=== PATIENT | male | born 1985 ===

== ENCOUNTER 2017-12-20 00:51 | Emergency (ER) | payer OTHER ==
[2017-12-20] MEDS ORDERED: Sodium Chloride 0.9% 1,000 ML IV STA (02:18)
--- NOTE | 2017-12-20 02:28 | ED PDOC ---
HPI: Abdomen Time Seen by Provider: 12/20/17 01:23 Chief Complaint (Nursing): Male Genitourinary Chief Complaint (Provider): Abdominal Pain History Per: Patient History/Exam Limitations: no limitations Current Symptoms Are (Timing): Still Present Additional Complaint(s): 32 y/o male presents to the ED complaining of sharp epigastric pain, onset yesterday. Today patient also reports of right flank, lower back pain, right lower quadrant pain, and right-sided groin pain as well as dysuria, fever, and chills. Denies bloody urination, other urinary symptoms, vomiting and diarrhea. PMD: None Provided Past Medical History Reviewed: Historical Data, Nursing Documentation, Vital Signs Vital Signs: Last Vital Signs Temp 102.9 F H 12/20/17 09:10 Pulse 102 H 12/20/17 09:10 Resp 20 12/20/17 09:10 BP 126/62 12/20/17 09:10 Pulse Ox 100 12/20/17 09:10 - Medical History PMH: No Chronic Diseases - Surgical History Surgical History: No Surg Hx - Family History Family History: States: Unknown Family Hx - Immunization History Hx Tetanus Toxoid Vaccination: No Hx Influenza Vaccination: No Hx Pneumococcal Vaccination: No - Home Medications Home Medications: Ambulatory Orders Medication Instructions Recorded No Known Home Med 04/27/17 - Allergies Allergies/Adverse Reactions: Allergies Allergy/AdvReac Type Severity Reaction Status Date / Time No Known Allergies Allergy Verified 12/20/17 01:13 Review of Systems ROS Statement: Except As Marked, All Systems Reviewed And Found Negative Constitutional: Positive for: Fever, Chills Gastrointestinal: Positive for: Abdominal Pain. Negative for: Vomiting, Diarrhea Genitourinary Male: Positive for: Hematuria Physical Exam - Reviewed Nursing Documentation Reviewed: Yes Vital Signs Reviewed: Yes - Physical Exam Appears: Positive for: No Acute Distress Head Exam: Positive for: ATRAUMATIC, NORMOCEPHALIC Skin: Positive for: Normal Color, Warm, Dry Eye Exam: Positive for: EOMI, Normal appearance, PERRL ENT: Positive for: Normal ENT Inspection Neck: Positive for: Normal, Painless ROM, Supple Cardiovascular/Chest: Positive for: Regular Rate, Rhythm Respiratory: Positive for: Normal Breath Sounds. Negative for: Respiratory Distress Gastrointestinal/Abdominal: Positive for: Normal Exam, Soft, Tenderness (to right lower quadrant) Back: Positive for: Normal Inspection Extremity: Positive for: Normal ROM. Negative for: Pedal Edema, Deformity Neurologic/Psych: Positive for: Alert, Oriented. Negative for: Motor/Sensory Deficits - Laboratory Results Result Diagrams: 12/20/17 02:55 12/20/17 02:55 - ECG O2 Sat by Pulse Oximetry: 97 (RA) Pulse Ox Interpretation: Normal Medical Decision Making Medical Decision Making: Time: 226 Impression: Flank pain and abdominal pain associated with fever and dysuria Differentials include but not limited to acute appendicitis, nephrolithiasis, UTI, etc. Plan: -- VBG -- CT Abd & Pelvis IV Contrast -- BMP -- ED Urine Dipstick -- CBC with differentials -- Sodium Chloride 1000 mls/hr -- Toradol 30 mg IVP -- Tylenol 650 mg PO -- Blood Culture -- Urine C&S Time: 05:20 EXAM: CT Abdomen and Pelvis With Intravenous Contrast CLINICAL HISTORY: 32 years old, male; Pain; Abdominal pain; Generalized TECHNIQUE: Axial computed tomography images of the abdomen and pelvis with intravenous contrast. All CT scans at this facility use at least one of these dose optimization techniques: automated exposure control; mA and/or kV adjustment per patient size (includes targeted exams where dose is matched to clinical indication); or iterative reconstruction. 645 images are submitted.Sagittal , axial and coronal MPR reformatted images are submitted. CONTRAST: 95 mL of OMNIPAQUE-300 administered intravenously. COMPARISON: No relevant prior studies available. FINDINGS: Lung bases: There is bibasilar atelectasis. ABDOMEN: Liver: Fatty liver.There is a focal liver hypodensity that cannot be further characterized on the current examination. Gallbladder and bile ducts: Unremarkable. No ductal dilation. Pancreas: Unremarkable. No mass. No ductal dilation. Spleen: Unremarkable. No splenomegaly. Adrenals: Unremarkable. No mass. Kidneys and ureters: Unremarkable. No solid mass. No hydronephrosis. Stomach and bowel: There ileal inflamed diverticula with surrounding inflammatory change and surrounding mesentery gas and air fluid level measuring 2.4 x 2.4 cm suspicious for perforated ileal diverticulitis with abscess. There are nonspecific fluid filled small bowel loops. These findings can represent ileus versus enteritis versus slow transit versus peristalsis. There is sigmoid colonic diverticulosis with inflammatory change suspicious for possible acute sigmoid diverticulitis as seen on image 151 series 4 versus reactive changes. PELVIS: Appendix: There is acute obstructive appendicitis with inflamed appendix is adherent to the medial right pelvis seen on image 69 series 3. The appendix is distended and obstructed with an appendicolith measuring 7 mm. There is surrounding fluid and inflammatory change. Bladder: Partially decompressed bladder with bladder wall thickening. Correlation with urinalysis is recommended only if clinical cystitis is suspected. Reproductive: Unremarkable. ABDOMEN and PELVIS: Intraperitoneal space: Right lower quadrant inflammatory change with perforated small bowel diverticulitis with abscess. No free air. There is fluid and inflammatory change along the right pelvic sidewall. Small amount of free pelvic fluid. Bones/joints: No acute fracture. No dislocation. Soft tissues: There is a fat-containing umbilical hernia. Vasculature: Unremarkable. No abdominal aortic aneurysm. Lymph nodes: Shotty periaortic lymph nodes. Other findings: CRITICAL RESULT: The study was personally discussed on the telephone with Oliverio Bolanos on 12/20/2017 5:09 AM EDT. The results were understood and acknowledged. IMPRESSION: 1. There ileal inflamed diverticula with surrounding inflammatory change and surrounding mesentery gas and air fluid level measuring 2.4 x 2.4 cm suspicious for perforated ileal diverticulitis with amorphous mesenteric gas and fluid collection representing abscess. 2. There is acute obstructive appendicitis with inflamed appendix is adherent to the medial right pelvis seen on image 69 series 3 I E. right pelvic sidewall. The appendix is distended and obstructed with an appendicolith measuring 7 mm. There is surrounding fluid and inflammatory change. 3.There is sigmoid colonic diverticulosis with inflammatory change suspicious for possible acute sigmoid diverticulitis as seen on image 151 series 4 versus less likely reactive changes. Emergent surgical evaluation is recommended. Thank you for allowing us to participate in the care of your patient. Dictated and Authenticated by: Esha Choe MD 12/20/2017 5:20 AM Eastern Time ([place] & [place]) [id number] Discussed with surgical residents at [facility] and [facility]. Discussed with landscaping supervisor who instructs that OR is closed and no surgeries can be performed today and patient can be transferred to [facility] ER. [id number] Palm who agrees that patient shoulder be transferred. I will arrange transfer to [facility] ER for surgical evaluation by the team at [facility]. [id number] Discussed with ED attending Dr Butt at [facility] who accepts for ER transfer. Scribe Attestation: Documented by Vinod Barker acting as a scribe for Dr. Oliverio Bolanos MD. Provider Scribe Attestation: All medical record entries made by the Scribe were at my direction and personally dictated by me. I have reviewed the chart and agree that the record accurately reflects my personal performance of the history, physical exam, medical decision making, and the department course for this patient. I have also personally directed, reviewed, and agree with the discharge instructions and disposition. Disposition - Clinical Impression Clinical Impression: Acute appendicitis, Acute diverticulitis, Diverticulitis of intestine with perforation and abscess - Patient ED Disposition Is Patient to be Admitted: No Counseled Patient/Family Regarding: Studies Performed, Diagnosis - Disposition Disposition: Other Institution ([facility] ER) Disposition Time: 05:40 Condition: STABLE
[2017-12-20 02:49] LABS: VENOUS BLOOD GAS PCO2 44 mmHg (40-60); VENOUS BLOOD GAS PO2 22 mm/Hg (30-55)
[2017-12-20 03:27] LABS: BASO # 0.1 K/uL (0.0-0.2); BASO % 0.3 % (0.0-2.0); HEMOGLOBIN 13.7 g/dL (12.0-18.0); LYMPH # 1.3 K/uL (1.0-4.3); LYMPH % 5.7 % (20.0-40.0); MEAN CORPUSCULAR HEMOGLOBIN 28.1 pg (27.0-31.0); MEAN CORPUSCULAR HGB CONC 34.3 g/dL (33.0-37.0); MEAN PLATELET VOLUME 8.3 fl (7.2-11.7); MONO # 1.9 K/uL (0.0-0.8); MONO % 8.3 % (0.0-10.0); NEUT # 19.7 K/uL (1.8-7.0); NEUT % 85.7 % (50.0-75.0); NRBC % 0.1 % (0.0-0.0); PLATELET COUNT 240 K/uL (130-400); RBC 4.88 Mil/uL (4.40-5.90); RED CELL DISTRIBUTION WIDTH 13.7 % (11.5-14.5)
[2017-12-20 03:35] LABS: BLOOD UREA NITROGEN 5 mg/dl (9-20); CALCIUM 8.8 mg/dL (8.4-10.2); GFR AFRICAN-AMERICAN > 60; GFR NON-AFRICAN AMERICAN > 60
[2017-12-20] MEDS ORDERED: Potassium Chloride 20 mEq ER Tab PO ONE (03:48)
[2017-12-20] MEDS ORDERED: Sodium Chloride 0.9% 50 ML IV ONE (04:16)
[2017-12-20] MEDS ORDERED: Iohexol 300 100 ML IJ ONE (04:16)
[2017-12-20 04:44] LABS: BANDS 2 % (0-2); LYMPHOCYTE 5 % (20-50); MONOCYTE 5 % (0-10); NEUTROPHIL 88 % (42-75); PLATELET ESTIMATE NORMAL (NORMAL); TOTAL CELLS COUNTED 100
[2017-12-20] MEDS ORDERED: Piperacillin/Tazobact 3.375 GM in Sodium Chloride 0.9% 100 ML IVPB STA (05:12)
[2017-12-20] MEDS ORDERED: Lactated Ringer's 1,000 ML IV SCH (06:15)
[2017-12-20 09:28] VITALS: BP 126/62; PULSE 102; RESP 20; TEMP 102.9
--- NOTE | 2017-12-20 11:02 | CT ---
PROCEDURE: CT Abdomen and Pelvis with contrast HISTORY: abdominal pain COMPARISON: None. TECHNIQUE: Contrast dose: 95 mL Omnipaque 300 Radiation dose: Total exam DLP = 793.9 mGy-cm. This CT exam was performed using one or more of the following dose reduction techniques: Automated exposure control, adjustment of the mA and/or kV according to patient size, and/or use of iterative reconstruction technique. FINDINGS: LOWER THORAX: Unremarkable. LIVER: Mild hepatic steatosis. No gross lesion or ductal dilatation. GALLBLADDER AND BILE DUCTS: Unremarkable. PANCREAS: Unremarkable. No gross lesion or ductal dilatation. SPLEEN: Unremarkable. ADRENALS: Unremarkable. No mass. KIDNEYS AND URETERS: Unremarkable. No hydronephrosis. No solid mass. VASCULATURE: Unremarkable. No aortic aneurysm. BOWEL: Colonic diverticulosis with nonspecific thickening adjacent to the sigmoid. No obstruction. No gross mural thickening. APPENDIX: Dilated thick-walled appendix with obstructing appendicolith and periappendiceal stranding. Adjacent 2.6 x 2.5 cm phlegmonous collection of fluid and air without identified wall/capsule. PERITONEUM: Unremarkable. No free fluid. No free air. LYMPH NODES: Unremarkable. No enlarged lymph nodes. BLADDER: Unremarkable. REPRODUCTIVE: Unremarkable. BONES: No acute fracture. OTHER FINDINGS: None. IMPRESSION: Acute appendicitis with periappendiceal 2.6 x 2.5 cm phlegmonous collection of fluid and air without identified wall/capsuleUnremarkable contrast enhanced CT of the abdomen and pelvis. In contradistinction to the preliminary report provided by [facility], there is no ileal diverticulitis ; the fluid collection described is related to appendiceal rupture. Sigmoid diverticulosis with mild nonspecific surrounding inflammatory change which may represent acute diverticulitis versus extension of inflammatory change from nearby appendiceal process.
[2017-12-20 20:28] VITALS: O2SAT 97
== END 2017-12-20 09:20 | disposition short-term general hospital (02) ==
LOC: H.ER 00:51
DX: K35.80 Unspecified acute appendicitis (principal); K57.30 Diverticulosis of large intestine without perforation or abscess without bleeding; K38.1 Appendicular concretions
CPT/HCPCS: 74177; 80048; 82803; 85025; 87040; 87086; 96374; 99284; J1885; J2543; J7030; J7120; Q9967